=== PATIENT | female | born 1990 | race Caucasian/White ===

== ENCOUNTER 2019-01-03 00:17 | Inpatient (IN) | payer BC, MEDICAID ==
[~2019-01-03] VITALS: Ht 165.1 cm; Wt 85.9 kg
[2019-01-03] MEDS ORDERED: MORPHINE SULFATE 4 MG/ML SYR/VIAL IV ONE (00:45)
[2019-01-03] MEDS ORDERED: ONDANSETRON HCL 4 MG/2 ML VIAL IV ONE (00:45)
[2019-01-03 00:53] LABS: Basophils # (auto) 0.1 uL; Basophils % (auto) 1.1 % (0.0-2.0); Eosinophils # (auto) 0.2 uL; Eosinophils % (auto) 3.1 % (0.0-7.0); Hematocrit 41.4 % (36.0-46.0); Hemoglobin 14.5 g/dL (12.2-16.2); Lymphocytes % (auto) 27.6 % (10.0-50.0); Mean Corpuscular Hemoglobin 31.5 pg (28.0-32.0); Mean Corpuscular Hgb Conc. 35.1 g/dL (32.0-36.0); Mean Corpuscular Volume 89.6 fL (80.0-100.0); Monocytes # (auto) 0.4 uL; Monocytes % (auto) 5.5 % (0.0-12.0); Neutrophils # (auto) 4.5 uL; Neutrophils % (auto) 62.7 % (37.0-80.0); Nucleated Red Blood Cells % 0.1 %; Platelet Count (auto) 342 10^3/uL (140-450); Red Blood Cells 4.62 10^6/uL (4.0-5.20); Red Cell Distribution Width 13.3 % (11.8-14.3); White Blood Cell 7.3 10^3/uL (4.4-10.8)
[2019-01-03 01:14] LABS: BUN/Creatinine Ratio 17.9; Potassium 3.5 mmol/L (3.5-5.1)
[2019-01-03 01:17] LABS: Bilirubin, Total 1.8 mg/dL (0.2-1.0); Total Protein 8.1 g/dL (6.4-8.2)
[2019-01-03] MEDS ORDERED: LORazepam 2MG/ML-1ML VIAL IV ONE (02:15)
[2019-01-03] MEDS ORDERED: HYDROcodone-ACET 10/325MG TAB PO ONE (03:00)
[2019-01-03] MEDS ORDERED: HYDROmorphone HCL 2 MG/ML VL IV ONE ×2 (03:30→07:00)
[2019-01-03] MEDS ORDERED: DIAZEPAM 5 MG TAB PO ONE (05:30)
[2019-01-03] MEDS ORDERED: SODIUM CHLORIDE 0.9% 1,000 ML IV ONE (05:30)
[2019-01-03] MEDS ORDERED: TETANUS-DIPTH-ACEL PERTUSSIS 0.5ML SYRG IM ONE (08:30)
[2019-01-03] MEDS ORDERED: ACETAMINOPHEN 500 MG TAB PO PRN (09:00)
[2019-01-03] MEDS ORDERED: MORPHINE SULF INJ 2 MG/ML SYRINGE 1ML IV PRN (09:00)
[2019-01-03] MEDS ORDERED: IPRATROPIUM BROM 0.5 MG/2.5ML INH SOL NEB PRN (09:00)
[2019-01-03] MEDS ORDERED: DOCUSATE SOD 100 MG CAP PO PRN (09:00)
[2019-01-03] MEDS ORDERED: ALBUTEROL SULF 2.5 MG/0.5ML(0.5%) NEB SOLN NEB PRN (09:00)
[2019-01-03] MEDS ORDERED: NITROGLYCERIN 0.4 MG SL TAB SL PRN (09:00)
[2019-01-03] MEDS: cefTRIAXone 1GM/50ML D5W 50 ML IV SCH (09:17)
[2019-01-03] MEDS: ONDANSETRON HCL 4 MG/2 ML VIAL IV PRN ×2 (09:17→20:02)
[2019-01-03] MEDS: SODIUM CHLORIDE 0.9% 1,000 ML IV SCH ×2 (09:18→20:02)
[2019-01-03 09:37] VITALS: BP 151/100
[2019-01-03] MEDS: HYDROmorphone HCL 2 MG/ML VL IV PRN ×3 (09:38→20:01)
--- NOTE | 2019-01-03 12:10 | NUR ---
ELEVATED B/P B/P 138/101 HR 78 bpm. Multiple rechecks with elevated B/P's. Notified Corrina Carlin, new order received and followed through.
--- NOTE | 2019-01-03 12:17 | NUR ---
Telemetry admit from ER RITA AUGUST admitted to Telemetry unit after verbal report received form Rita Levi, RN, ER. Patient oriented to Huyen Giraldo, primary RN, unit, room, bed, and unit policies regarding patient care and visiting hours. Patient now on continuous telemetry monitoring, tele box #7 and telemetry reading on arrival to unit is sinus rhythm @ 85 bpm. Patient placed on bedside oxygen, weighed by bedscale and encouraged to call if they need something. IV to right wrist, 20 gauge, patent and infusing 0.9% NS @ 100 ml/hr. Patient is very lethargic but easily arouses to touch. Alert and oriented X4. No signs or symptoms of shortness of breath, complains of right mid thigh pain, 9/10, informed prescribed pain medication not due at this time, also verbalized nausea, informed prescribed nausea medication not due at this time, verbalized understanding. Assessed right mid thigh, area patient verbalized she was bit by a "black ", no redness, swelling, or indication of puncture to area. Bed locked, in lowest position, call light within reach. All questions and concerns addressed, patient verbalized understanding. Will continue to monitor Q1 hour and PRN.
[2019-01-03 12:30] VITALS: BP 138/101
[2019-01-03 12:31] VITALS: BP 138/101
[2019-01-03] MEDS: amLODIPine BESYLATE 5 MG TAB PO SCH (12:48)
[2019-01-03] MEDS ORDERED: ALPR0.25 PO (13:46)
[2019-01-03] MEDS ORDERED: LEV100T PO (13:46)
[2019-01-03] MEDS: diphenhdrAMINE HCL 25 MG CAP PO SCH ×3 (14:10→22:15)
[2019-01-03] MEDS: CLINDAMYCIN 300MG IV 50 ML IV SCH ×2 (14:10→21:24)
[2019-01-03] MEDS: FAMOTIDINE 20 MG TAB PO SCH (14:10)
--- NOTE | 2019-01-03 14:11 | NUR ---
B/P EVAL 138/94
[2019-01-03 17:00] VITALS: BP 141/96
--- NOTE | 2019-01-03 18:24 | NUR ---
Respiratory note: PT RECIEVED ON RA. PT IS AWAKE AND RESPONSIVE. PT IS WALKING AROUND BED. BOYFRIEND AT BEDSIDE. PT IS IN NO RESPIRATORY DISTRESS. SPO2 ON RA 99%, HR 91, RR 18. BS CLEAR T/O. NO PRN TX INDICATED AT THIS TIME. PT AWARE TO CALL FOR TX'S IF SOB/WHEEZING.
--- NOTE | 2019-01-03 19:26 | NUR ---
Care endorsed to Mendez RN, night nurse
[2019-01-03] MEDS: ALPRAZolam 0.25 MG TAB PO PRN (21:24)
[2019-01-03 21:57] VITALS: BP 152/100
[2019-01-03 21:58] VITALS: BP 159/96
[2019-01-04] MEDS: HYDROmorphone HCL 2 MG/ML VL IV PRN ×5 (01:46→21:25)
[2019-01-04 04:52] VITALS: BP 150/105
[2019-01-04] MEDS ORDERED: cloNIDine HCL 0.1 MG TAB PO ONE (05:30)
--- NOTE | 2019-01-04 05:34 | NUR ---
notified matos hospitalist of patient blood pressure is 150/105. carlo provided 1x dose of clonidine 0.1 mg po. Addendum: 01/04/19 at 0538 by Mendez Lofton RN emphasized to hospitalist diastolic is high.
[2019-01-04] MEDS: diphenhdrAMINE HCL 25 MG CAP PO SCH (05:36)
[2019-01-04] MEDS: SODIUM CHLORIDE 0.9% 1,000 ML IV SCH ×2 (05:37→15:15)
[2019-01-04] MEDS: CLINDAMYCIN 300MG IV 50 ML IV SCH ×3 (05:37→21:25)
[2019-01-04 06:17] LABS: Basophils # (auto) 0 uL; Basophils % (auto) 0.5 % (0.0-2.0); Eosinophils # (auto) 0.1 uL; Eosinophils % (auto) 2.5 % (0.0-7.0); Hemoglobin 13.1 g/dL (12.2-16.2); Lymphocytes # (auto) 1.2 uL; Lymphocytes % (auto) 23.4 % (10.0-50.0); Mean Corpuscular Hemoglobin 31.5 pg (28.0-32.0); Mean Corpuscular Hgb Conc. 34.6 g/dL (32.0-36.0); Monocytes # (auto) 0.3 uL; Monocytes % (auto) 6.6 % (0.0-12.0); Neutrophils # (auto) 3.5 uL; Platelet Count (auto) 279 10^3/uL (140-450); Red Blood Cells 4.18 10^6/uL (4.0-5.20); Red Cell Distribution Width 13.5 % (11.8-14.3); White Blood Cell 5.2 10^3/uL (4.4-10.8)
[2019-01-04 06:27] LABS: Albumin 3.6 g/dL (3.4-5.0); Calcium 8.4 mg/dL (8.5-10.1); Potassium 3.6 mmol/L (3.5-5.1)
[2019-01-04 06:30] LABS: BUN/Creatinine Ratio 11.7; Bilirubin, Total 2.4 mg/dL (0.2-1.0); Total Protein 7.4 g/dL (6.4-8.2)
[2019-01-04] MEDS ORDERED: INFLUENZA QUAD 2019-2020 0.5ml SYRG IM ONE (07:00)
--- NOTE | 2019-01-04 08:00 | NUR ---
Opening Shift Note Assumed care of patient, awake, alert and oriented X4. No S/S of distress/SOB or pain. Tele# 7, sinus rhythm @ 80 bpm. IV to right wrist, 20 gauge, patent and infusing 0.9% NS @ 100 ml/hr. Right medial thigh, where patient verbalized she was bit by a "black " remains no redness, swelling, or indication of puncture to area. Bed locked, in lowest position, call light within reach, instructed on POC and to call for assist PRN, will continue to monitor for changes Q1hr and PRN.
[2019-01-04 08:30] VITALS: BP 130/92
--- NOTE | 2019-01-04 08:44 | NUR ---
Respiratory note: PT ASSESSED FOR PRN MEDNEB TX . NO RESPIRATORY DISTRESS NOTED. TX NOT INDICATED AT THIS TIME. SPO2 96% HR 76 RR 18 B/S CLEAR.
[2019-01-04] MEDS: cefTRIAXone 1GM/50ML D5W 50 ML IV SCH (11:16)
[2019-01-04] MEDS: amLODIPine BESYLATE 5 MG TAB PO SCH (11:19)
[2019-01-04] MEDS: FAMOTIDINE 20 MG TAB PO SCH (11:20)
[2019-01-04 12:31] VITALS: BP 124/81
[2019-01-04] MEDS ORDERED: LEVOTHYROXINE SODIUM 25 MCG TAB PO ONE (12:45)
[2019-01-04 14:46] LABS: Urine Bacteria NONE SEEN /hpf (None Seen); Urine Blood Negative /uL (Negative); Urine Specific Gravity 1.011 (1.001-1.035); Urine WBC <1 /hpf (0 - 5)
[2019-01-04 14:48] LABS: Alcohol, Urine < 3.0 mg/dL (0-5); Amphetamine Screen, Urine NEGATIVE (NEGATIVE); Barbiturate Scree,Urine NEGATIVE (NEGATIVE); Benzodiazephine Screen, Urine POSITIVE (NEGATIVE); Cannabinoid Screen, Urine NEGATIVE (NEGATIVE); Cocaine Screen, Urine NEGATIVE (NEGATIVE); Opiate Scree,Urine NEGATIVE (NEGATIVE); Phencyclidine Screen, Urine NEGATIVE (NEGATIVE)
[2019-01-04 17:15] VITALS: BP 130/88
[2019-01-04] MEDS ORDERED: POLYETHYLENE GLYCOL 17 GM PWDR PO ONE (17:36)
[2019-01-04] MEDS ORDERED: POLYETHYLENE GLYCOL 17 GM PWDR PO PRN (17:45)
--- NOTE | 2019-01-04 18:32 | NUR ---
PT ASSESSED FOR PRN MED NEB TX. SPO2 95% ON RA, HR 81. PT DENIES ANY RESPIRATORY DISTRESS. NO TX INDICATED AT THIS TIME. PT IS AWARE TO HAVE RT PAGED IF TX NEEDED.
--- NOTE | 2019-01-04 19:21 | NUR ---
OPENING NOTES RECEIVED REPORT FROM DAY SHIFT NURSE, JACE. PT IS AWAKE, ALERT AND ORIENTATED X 4 WITH NO S/S OF DISTRESS NOR PAIN. NO S/S OF SOB. FAMILY IS AT BEDSIDE. BED IS IN LOWEST POSITION AND SIDE RAILS ARE UP X 2. BED BRAKES ARE LOCKED AND CALL LIGHT IS WITH IN REACH. HOB IS 30 DEGREES. WILL CONTINUE TO MONITOR Q 1 HR.
--- NOTE | 2019-01-04 19:22 | NUR ---
Care endorsed to YUN Rebolledo, night nurse.
[2019-01-04 20:00] VITALS: BP 130/92
--- NOTE | 2019-01-04 21:30 | NUR ---
IV insertion IV access obtained, via clean sterile technique by inserting 22 gauge catheter at left hand after 1 attempt. IV secured properly. No trauma to site. Patient tolerated procedure well.
--- NOTE | 2019-01-04 21:38 | NUR ---
IV removal IV DC'd with sterile technique, catheter fully intact. Pressure dressing applied to site. Patient tolerated procedure well.
[2019-01-04 21:50] VITALS: BP 145/103
[2019-01-05] MEDS: ALPRAZolam 0.25 MG TAB PO PRN (00:01)
[2019-01-05] MEDS: SODIUM CHLORIDE 0.9% 1,000 ML IV SCH ×2 (01:00→09:04)
[2019-01-05] MEDS: HYDROmorphone HCL 2 MG/ML VL IV PRN ×3 (02:22→10:56)
[2019-01-05 05:00] VITALS: BP 146/92
[2019-01-05] MEDS: CLINDAMYCIN 300MG IV 50 ML IV SCH ×2 (06:04→14:39)
[2019-01-05 06:34] LABS: Basophils # (auto) 0 uL; Basophils % (auto) 0.8 % (0.0-2.0); Eosinophils # (auto) 0.2 uL; Eosinophils % (auto) 2.8 % (0.0-7.0); Hematocrit 38.9 % (36.0-46.0); Hemoglobin 13.3 g/dL (12.2-16.2); Lymphocytes # (auto) 1.7 uL; Lymphocytes % (auto) 28.5 % (10.0-50.0); Mean Corpuscular Hemoglobin 31.5 pg (28.0-32.0); Mean Corpuscular Hgb Conc. 34.1 g/dL (32.0-36.0); Mean Corpuscular Volume 92.3 fL (80.0-100.0); Monocytes # (auto) 0.4 uL; Monocytes % (auto) 6.7 % (0.0-12.0); Neutrophils # (auto) 3.7 uL; Neutrophils % (auto) 61.2 % (37.0-80.0); Nucleated Red Blood Cells % 0.1 %; Platelet Count (auto) 293 10^3/uL (140-450); Red Blood Cells 4.22 10^6/uL (4.0-5.20); Red Cell Distribution Width 13.5 % (11.8-14.3)
[2019-01-05 06:57] LABS: Albumin 3.5 g/dL (3.4-5.0); BUN/Creatinine Ratio 12.2; Bilirubin, Total 1.3 mg/dL (0.2-1.0); Calcium 8.2 mg/dL (8.5-10.1); Magnesium 2.1 mg/dL (1.6-2.6); Total Protein 7.3 g/dL (6.4-8.2)
[2019-01-05] MEDS ORDERED: LEVOTHYROXINE SODIUM 25 MCG TAB PO SCH ×2 (07:00)
[2019-01-05] MEDS ORDERED: LEVOTHYROXINE SODIUM 50 MCG TAB PO SCH (07:00)
[2019-01-05] MEDS ORDERED: LEVOTHYROXINE SODIUM 100 MCG TAB PO SCH (07:00)
--- NOTE | 2019-01-05 07:36 | NUR ---
closing notes endorsed care to day shift nurseRobe.
[2019-01-05 07:43] LABS: Potassium 3.6 mmol/L (3.5-5.1)
[2019-01-05 08:00] VITALS: BP 150/100
[2019-01-05] MEDS: FAMOTIDINE 20 MG TAB PO SCH (09:02)
[2019-01-05] MEDS: cefTRIAXone 1GM/50ML D5W 50 ML IV SCH (09:02)
[2019-01-05] MEDS: amLODIPine BESYLATE 5 MG TAB PO SCH (09:03)
[2019-01-05] MEDS ORDERED: hydrALAZINE HCL 20 MG/ML VL IV PRN (10:00)
--- NOTE | 2019-01-05 10:45 | NUR ---
DR. GARBER IN TO SEE PT. PT IN AGREEMENT WITH PLAN OF CARE.
[2019-01-05 11:25] LABS: Hepatitis B Surface Antibody Positive
[2019-01-05 12:04] LABS: Hepatitis A Total Antibody Positive
[2019-01-05 12:37] LABS: Hepatitis B Surface Antigen Negative (Negative)
[2019-01-05 13:00] VITALS: BP 130/87
[2019-01-05 14:05] LABS: Hepatitis C Antibody Negative (Negative)
[2019-01-05 14:12] LABS: Hepatitis B Core Total AB Negative
--- NOTE | 2019-01-05 14:39 | NUR ---
Respiratory note: ASSESSED PATIENT FOR PRN BREATHING TX, NO TX NEEDED AT THIS TIME. PATIENT IS AWAKE AND ALERT, NO RESPIRATORY DISTRESS. PATIENT IS ON ROOM AIR, WILL CONTINUE TO MONITOR PATIENT.
[2019-01-05 15:32] VITALS: BP 130/87
--- NOTE | 2019-01-05 16:23 | NUR ---
DISCHARGE INSTRUCTIONS PROVIDED TO PT. PT VERBALIZED UNDERSTANDING FOR FOLLOW UP APPOINTMENT WITH PRIMARY CARE PROVIDER. PT REPORTS THAT SHE HAS MADE THE APPOINTMENT FOR Wednesday01/09/19. PRESCRIPTION ORDERS GIVEN TO PT, PT VERBALIZED UNDERSTANDING. IV CATHETER DC'D, CATHETER INTACT, NO PHLEBITIS. PT SAFELY ESCORTED OUT OF UNIT VIA AMBULATION, ACCOMPANIED BY FAMILY.
== END 2019-01-05 16:30 | disposition home or self-care (01) | DRG 556 ==
LOC: ER 00:24 → TELE 00:25 → TELE-EAST 11:25 → EAST 01-05 02:31
PROVIDERS: ADMIT Nurse Practitioner Acute Care; ATTEND Internal Medicine
DX: M79.651 Pain in right thigh (principal); E03.9 Hypothyroidism, unspecified; E66.9 Obesity, unspecified; R25.2 Cramp and spasm; K76.0 Fatty (change of) liver, not elsewhere classified; R79.89 Other specified abnormal findings of blood chemistry; F41.9 Anxiety disorder, unspecified; T63.311A Toxic effect of venom of black widow spider, accidental (unintentional), initial encounter; Y93.89 Activity, other specified; Y92.89 Other specified places as the place of occurrence of the external cause; Y99.8 Other external cause status; Z68.31 Body mass index [BMI] 31.0-31.9, adult
CPT/HCPCS: 36415; 76705; 80053; 80307; 81001; 82550; 83036; 83690; 83735; 84439; 84443; 85025; 85652; 86141; 86431; 86703; 86704; 86706; 86708; 86803; 87340; 90715; 94640; 96365; 96375; G0378; J0696; J2405; J3490